=== PATIENT | male | born 1955 | race Caucasian/White ===

== ENCOUNTER → 2017-06-18 | Outpatient (CLI) | payer BC ==
[~2017-06-18] MED LIST: CANA300T PO; CEPHALEXIN250 M1; CEPHALEXIN250 M1 PO; DIFLUCAN150 MG PO; DOXYCYCLINE 10100 MG; DYNACIN100 M1 PO; FORT1000TA PO; GLUCOPHAGE1000 MG PO; LANTUS100 U/ML SC; LEVAQUIN 5500 MG/101 IV; LEVAQUIN 5500 MG/TA1 PO; LEVEMIR FLEX100 U/ML SQ; LOTREL 5 MG-401 CAP PO; LOTRIMIN CREAM15 GM TP; NORCO 325 MG-51 TAB PO; PRINIVIL20 MG PO; PRINIVIL40 MG PO; TEFLARO 60600 MG/VIA IV; ULTRAM 50MG TAB50 MG PO; VANCOMYCIN IV
== END ==
LOC: ZCOL.LAB 16:17
DX: L02.33 Carbuncle of buttock (principal)

== ENCOUNTER 2017-06-25 13:13 | Inpatient (IN) | payer BC ==
[2017-06-25] VITALS (8 sets, daily range): BP systolic 95–167; BP diastolic 43–86; PULSE 65–87; TEMP 97.8–98.4
[~2017-06-25] VITALS: Ht 172.7 cm; Wt 107.0 kg
[2017-06-25] MEDS ORDERED: NORVASC 5MG5 MG/TAB PO (14:04)
[2017-06-25] MEDS ORDERED: COZAAR100 MG PO (14:05)
[2017-06-25] MEDS ORDERED: LIPITOR 10MG10 MG PO (14:05)
[2017-06-25] MEDS ORDERED: AMOXICILLIN 8751 TAB PO (14:12)
[2017-06-26] VITALS: BP 117/66; PULSE 61; TEMP 98.2
[2017-06-26 04:00] VITALS: BP 134/69; PULSE 65; TEMP 98.1
[2017-06-26 07:24] LABS: MEAN CELL VOLUME 92 fl (80.0-100.0); MEAN CORPUSCULAR HGB CONC 32 g/dl (33.0-37.0); MEAN PLATELET VOLUME 9.6 fl (7.4-10.4); PLATELET COUNT 401 K/mm3 (130-400); RED BLOOD COUNT 3.71 M/mm3 (4.20-5.60); WHITE BLOOD COUNT 12.1 K/mm3 (4.8-10.8)
[2017-06-26 07:29] LABS: ADD PATHOLOGY DIFF REVIEW NO; HEMATOCRIT 34.2 % (42.0-52.0); HEMOGLOBIN 10.9 g/dl (13.5-18.0); MEAN CORPUSCULAR HEMOGLOBIN 29 pg (27.0-31.0)
[2017-06-26 07:46] LABS: CALCIUM 8.9 mg/dL (8.4-10.2); CREATININE, serum 1.5 mg/dL (0.66-1.25); POTASSIUM 4.4 mmol/L (3.4-5.0)
[2017-06-26 08:00] VITALS: BP 133/57; PULSE 71; TEMP 98.5
[2017-06-26 08:29] LABS: BAND 31 % (0-10); EOSINOPHIL 3 % (0-4); LYMPHOCYTE 16 % (20.0-51.0); METAMYELOCYTE 2 % (0-0); NEUTROPHILS 47 % (42.0-75.2); PLATELET ESTIMATE INCREASED (NORMAL); TOTAL CELLS COUNTED 100
[2017-06-26 14:18] VITALS: BP 108/43; PULSE 74; TEMP 98.6
[2017-06-26 15:47] LABS: CREATININE, serum 1.43 mg/dL (0.66-1.25); POTASSIUM 4.7 mmol/L (3.4-5.0)
[2017-06-26 18:12] VITALS: BP 113/47; PULSE 81; TEMP 99.3
[2017-06-26 22:31] VITALS: BP 118/51; PULSE 83; TEMP 99.7
[2017-06-27] VITALS (12 sets, daily range): BP systolic 103–162; BP diastolic 52–87; PULSE 62–88; TEMP 98.1–99.5
[2017-06-27 06:51] LABS: MEAN CELL VOLUME 92 fl (80.0-100.0); MEAN CORPUSCULAR HGB CONC 33 g/dl (33.0-37.0); MEAN PLATELET VOLUME 9.7 fl (7.4-10.4); PLATELET COUNT 322 K/mm3 (130-400); RED BLOOD COUNT 3.47 M/mm3 (4.20-5.60); WHITE BLOOD COUNT 10.7 K/mm3 (4.8-10.8)
[2017-06-27 06:52] LABS: HEMOGLOBIN 10.4 g/dl (13.5-18.0); MEAN CORPUSCULAR HEMOGLOBIN 30 pg (27.0-31.0)
[2017-06-27 06:53] LABS: ADD PATHOLOGY DIFF REVIEW NO
[2017-06-27 07:05] LABS: ALBUMIN 2.9 gm/dL (3.5-5.0); CALCIUM 8.5 mg/dL (8.4-10.2); CREATININE, serum 1.22 mg/dL (0.66-1.25); PHOSPHOROUS 3.7 mg/dL (2.5-4.5); POTASSIUM 4.3 mmol/L (3.4-5.0)
[2017-06-27 09:13] LABS: BAND 37 % (0-10); LYMPHOCYTE 15 % (20.0-51.0); MYELOCYTE 1 % (0-0); NEUTROPHILS 47 % (42.0-75.2); PLATELET ESTIMATE INCREASED (NORMAL); TOTAL CELLS COUNTED 100
[2017-06-28 00:15] VITALS: BP 152/74; PULSE 70
[2017-06-28 04:40] VITALS: BP 137/55; PULSE 77; TEMP 98.1
[2017-06-28 08:57] LABS: BASO % 0.3 % (0.0-2.0); EOS # 0.2 (0.0-0.7); EOS % 1.7 % (0-4.0); GRAN # 7.9 (1.4-6.5); GRAN % 75.1 % (42.2-75.2); LYMPH # 1.4 (1.2-3.4); MEAN CELL VOLUME 93 fl (80.0-100.0); MEAN CORPUSCULAR HGB CONC 32 g/dl (33.0-37.0); MEAN PLATELET VOLUME 9.5 fl (7.4-10.4); MONO # 0.9 (0.1-0.6); MONO % 8.9 % (1.7-9.3); PLATELET COUNT 294 K/mm3 (130-400); RED BLOOD COUNT 3.46 M/mm3 (4.20-5.60); WHITE BLOOD COUNT 10.6 K/mm3 (4.8-10.8)
[2017-06-28 08:58] LABS: HEMATOCRIT 32.2 % (42.0-52.0); HEMOGLOBIN 10.3 g/dl (13.5-18.0); MEAN CORPUSCULAR HEMOGLOBIN 30 pg (27.0-31.0)
[2017-06-28 09:00] LABS: CALCIUM 8.8 mg/dL (8.4-10.2); CREATININE, serum 1.18 mg/dL (0.66-1.25); POTASSIUM 4.4 mmol/L (3.4-5.0)
[2017-06-28 09:04] VITALS: BP 142/69; PULSE 71; TEMP 99
[2017-06-28 13:31] VITALS: BP 125/65; PULSE 70; TEMP 97.7
== END 2017-06-28 17:15 | disposition short-term general hospital (02) | DRG 357 ==
LOC: SDCO 13:13 → SURG 16:49
PROVIDERS: Surgery
PROC: 0KBN0ZZ Excision of Right Hip Muscle, Open Approach (ICD-10-PCS; 2017-06-25)
PROC: 0KBP0ZZ Excision of Left Hip Muscle, Open Approach (ICD-10-PCS; principal; 2017-06-25 15:00)
PROC: 0JB70ZZ Excision of Back Subcutaneous Tissue and Fascia, Open Approach (ICD-10-PCS; 2017-06-27)
PROC: 0JB90ZZ Excision of Buttock Subcutaneous Tissue and Fascia, Open Approach (ICD-10-PCS; 2017-06-27)
DX: K61.1 Rectal abscess (principal); L03.317 Cellulitis of buttock; E11.52 Type 2 diabetes mellitus with diabetic peripheral angiopathy with gangrene; I96 Gangrene, not elsewhere classified; K61.0 Anal abscess; I10 Essential (primary) hypertension; F17.290 Nicotine dependence, other tobacco product, uncomplicated; E11.21 Type 2 diabetes mellitus with diabetic nephropathy; B95.4 Other streptococcus as the cause of diseases classified elsewhere
CPT/HCPCS: A9284; J0690; J1170; J1644; J1815; J1940; J2370; J2405; J2543; J2704; J2765; J3010; J7030; J7050; J7120